=== PATIENT | male | born 1985 | race Hispanic/Latino ===

== ENCOUNTER 2020-03-28 18:48 | Emergency (ER) | payer SELFPAY ==
[~2020-03-28 18:48] MED LIST: ASPI-1005 PO; CLOP75TA14 PO; LISI5TAB PO; METO25 PO; Simvastatin PO
[2020-03-28] MEDS ORDERED: ASPIRIN 325 MG TABLET ONE (19:11)
[2020-03-28 19:33] LABS: BASOPHILS % (AUTO) 0.2 % (0.0-5.0); EOSINOPHILS % (AUTO) 1.4 % (0.0-8.0); HEMATOCRIT 47.3 % (42-54); LYMPHOCYTES % (AUTO) 27.6 % (21.0-51.0); MEAN CORPUSCULAR HEMOGLOBIN 30.4 pg (27.0-33.0); MEAN CORPUSCULAR HGB CONC 35.3 g/dL (32.0-36.0); MEAN CORPUSCULAR VOLUME 86.2 fL (79-99); MONOCYTES % (AUTO) 9.5 % (3.0-13.0); NEUTROPHILS % (AUTO) 61.2 % (40.0-77.0); PLATELET COUNT (AUTO) 218 K/uL (130-400); RED BLOOD CELL COUNT(AUTO) 5.49 MIL/uL (4.50-6.20); RED CELL DISTRIBUTION WIDTH 12.8 % (11.0-15.5); WHITE BLOOD COUNT (AUTO) 8.1 K/uL (4.8-10.8)
[2020-03-28 19:43] LABS: CREATININE 1.2 mg/dL (0.5-1.5)
[2020-03-28 19:46] LABS: INR 1.03 (0.85-1.15); PARTIAL THROMBOPLASTIN TIME 22.3 SEC (26.3-35.5); PROTHROMBIN TIME 11.1 SEC (9.6-11.6)
[2020-03-28 19:47] LABS: AMPHET/METH SCREEN,URINE NEGATIVE (NEGATIVE); BARBITURATE SCREEN, URINE NEGATIVE (NEGATIVE); BENZODIAZEPINES SCREEN,URINE NEGATIVE (NEGATIVE); CANNABINOID SCREEN,URINE NEGATIVE (NEGATIVE); COCAINE SCREEN,URINE NEGATIVE (NEGATIVE); OPIATE SCREEN,URINE NEGATIVE (NEGATIVE); PHENCYCLIDINE SCREEN,URINE NEGATIVE (NEGATIVE)
[2020-03-28 19:48] LABS: ALBUMIN 4.5 g/dL (3.5-5.0); BILIRUBIN,TOTAL 0.7 mg/dL (0.2-1.0); TOTAL PROTEIN, SERUM 7.6 g/dL (6.0-8.3)
[2020-03-28] MEDS ORDERED: POTASSIUM CHLORIDE 20 MEQ ERTAB PO ONE (20:03)
[2020-03-29] MEDS ORDERED: SODIUM CHLORIDE 0.9% 50 ML IV ONE (02:19)
== END 2020-03-28 21:59 | disposition home or self-care (01) ==
LOC: EDH 18:48
DX: R00.2 Palpitations (principal); E87.6 Hypokalemia; I10 Essential (primary) hypertension; I21.9 Acute myocardial infarction, unspecified; Z88.6 Allergy status to analgesic agent
CPT/HCPCS: 36415; 71045; 80053; 80305; 82550; 84484; 85025; 85610; 85730; 93005; 96360; 96361

== ENCOUNTER 2020-04-01 23:52 | Emergency (ER) | payer SELFPAY ==
[2020-04-01] MEDS ORDERED: SODIUM CHLORIDE 0.9% 1000ML 1,000 ML IV ONE (23:53)
[2020-04-02 00:47] LABS: BASOPHILS % (AUTO) 0.2 % (0.0-5.0); EOSINOPHILS % (AUTO) 0.5 % (0.0-8.0); HEMATOCRIT 44.6 % (42-54); LYMPHOCYTES % (AUTO) 18.4 % (21.0-51.0); MEAN CORPUSCULAR HEMOGLOBIN 30.5 pg (27.0-33.0); MEAN CORPUSCULAR HGB CONC 35.7 g/dL (32.0-36.0); MEAN CORPUSCULAR VOLUME 85.6 fL (79-99); MONOCYTES % (AUTO) 7.1 % (3.0-13.0); NEUTROPHILS % (AUTO) 73.7 % (40.0-77.0); PLATELET COUNT (AUTO) 208 K/uL (130-400); RED BLOOD CELL COUNT(AUTO) 5.21 MIL/uL (4.50-6.20); RED CELL DISTRIBUTION WIDTH 12.4 % (11.0-15.5); WHITE BLOOD COUNT (AUTO) 8.2 K/uL (4.8-10.8)
[2020-04-02 00:55] LABS: CREATININE 1.1 mg/dL (0.5-1.5); POTASSIUM 3.8 mmol/L (3.5-5.1)
[2020-04-02 00:59] LABS: ALBUMIN 4.4 g/dL (3.5-5.0); BILIRUBIN,TOTAL 0.4 mg/dL (0.2-1.0); TOTAL PROTEIN, SERUM 7.5 g/dL (6.0-8.3)
[2020-04-02 01:00] LABS: INR 0.99 (0.85-1.15); PARTIAL THROMBOPLASTIN TIME 25.7 SEC (26.3-35.5); PROTHROMBIN TIME 10.7 SEC (9.6-11.6)
[2020-04-02 01:01] LABS: B-TYPE NATRIURETIC PEPTIDE < 5 pg/mL (0-100)
[2020-04-02 02:02] LABS: APPEARANCE,URINE Clear (CLEAR); BILIRUBIN,URINE Negative (NEGATIVE); COLOR,URINE Yellow (YELLOW); GLUCOSE, URINE (UA) Negative (NEGATIVE); KETONES,URINE Negative (NEGATIVE); LEUKOCYTE ESTERASE ,URINE Negative (NEGATIVE); NITRATE,URINE Negative (NEGATIVE); OCCULT BLOOD,URINE Negative (NEGATIVE); PH,URINE 7.5 (5.0-8.0); PROTEIN,URINE Negative (NEGATIVE); UROBILINOGEN,URINE 0.2 mg/dL (0.2-1.0)
== END 2020-04-02 03:27 | disposition home or self-care (01) ==
LOC: EDH 23:52
DX: R06.00 Dyspnea, unspecified (principal); R42 Dizziness and giddiness; I25.10 Atherosclerotic heart disease of native coronary artery without angina pectoris; I25.2 Old myocardial infarction; Z88.6 Allergy status to analgesic agent; Z79.899 Other long term (current) drug therapy; Z98.890 Other specified postprocedural states
CPT/HCPCS: 36415; 71045; 80053; 81003; 82550; 83605; 83880; 84484 ×2; 85025; 85610; 85730; 93005; 96360; 99285; J7030

== ENCOUNTER 2024-08-27 16:31 | Emergency (ER) | payer BC ==
[~2024-08-27] VITALS: Ht 165.1 cm; Wt 68.0 kg
[~2024-08-27 16:31] MED LIST changes: +ALBU90AE3 IH; +CLOP-31 PO; -CLOP75TA14 PO; +LORA10TA60 PO
[2024-08-27 18:13] LABS: RAPID GROUP A STREP negative (NEGATIVE)
[2024-08-27 18:15] LABS: SARS-CoV-2, RNA, NAAT NEGATIVE SARS CoV-2 (NEGATIVE)
[2024-08-27 18:23] LABS: INFLUENZA TYPE A Negative For Type A (NEGATIVE); INFLUENZA TYPE B Negative For Type B (NEGATIVE)
[2024-08-27] MEDS ORDERED: AZIT250T9 PO (19:17)
[2024-08-27] MEDS ORDERED: METH4TAB3 PO (19:17)
--- NOTE | 2024-08-27 19:18 | ERN ---
General Chief Complaint: Flu Symptoms Stated Complaint: FEVER, CHILLS, COUGH Time Seen by MD: 16:32 Time Seen by Midlevel: 16:32 Source: patient History of Present Illness Initial Comments Patient is a 39-year-old male with no significant past medical history presenting to the emergency department with fever chills that started yesterday. He does report recent travel to [facility] for a sports event. He reports being exposed to a lot of people. Denies any other symptoms at this time Allergies: Coded Allergies: acetaminophen (Unverified Allergy, Intermediate, HIVES, 12/22/14) Home Meds Active Scripts Loratadine (Claritin) 10 Mg Tablet, 10 MG PO DAILY, #30 TAB Prov:MARK DAHL MD 11/16/23 Albuterol Sulfate (Proair Digihaler) 90 Mcg Aer.pw.bas, 2 PUFF IH QID, #1 UNIT Prov:MARK DAHL MD 11/16/23 [Simvastatin] 40 MG TABLET No Conflict Check, 40 MG PO HS, #60 TAB 3 Refills Prov:DEBI GASTON MD 12/25/14 Metoprolol Tartrate (Lopressor) 25 Mg Tablet, 25 MG PO BID, #60 TAB 3 Refills Prov:DEBI GASTON MD 12/25/14 Lisinopril (Prinivil) 5 Mg Tablet, 5 MG PO BID, #60 TAB 3 Refills Prov:DEBI GASTON MD 12/25/14 Clopidogrel Bisulfate (Plavix) 75 Mg Tab, 75 MG PO DAILY, #60 TAB 3 Refills Prov:DEBI GASTON MD 12/25/14 Aspirin (ASPIRIN 81MG CHEW TAB) 81 Mg Tab.chew, 81 MG PO DAILY, #60 TAB.CHEW 3 R efills Prov:DEBI GASTON MD 12/25/14 Past Medical History Past Medical History: Hypertension, HI Medical History Other: HI (2014) Past Surgical History: None Family History Family History: Negative Social History Social History: Negative ROS Dictation CONSTITUTIONAL: Negative except for HPI HEAD/FACE: Negative except for HPI EENT: Negative except for HPI RESPIRATORY: Negative except for HPI GASTROINTESTINAL/ABDOMINAL: Negative except for HPI GENITOURINARY: Negative except for HPI MUSCULOSKELETAL: Negative except for HPI INTEGUMENTARY: Negative except for HPI NEUROLOGICAL/PSYCH: Negative except for HPI HEMATOLOGIC/LYMPHATIC: Negative except for HPI All Systems Negative, Except as noted above. 13 point review of systems assessed and all negative except for above. Physical Exam Physical Exam Dictation Vital Signs reviewed General Appearance: Alert, oriented x 3, no acute distress, well developed, nourished. Head and Face: non-traumatic. Eyes: PERRL, pink conjunctivas, eyelid no trauma, anterior chamber with arcus senilis. Ears: Pinnas intact and no signs of trauma or erythema ear canals clear and no discharge TM no erythema Nose: No discharge, no bleeding. Oropharynx: Mouth normal, tongue pink, pharynx clear,no erythema, tonsils no exudates, no abscesses noted, mucous membrane moist Neck: Supple, non-tender, no thyromegaly, no masses, no JVD, no bruits Breast:Deferred Chest:No tenderness, no crepitus, no paradoxical movement, no retractions Lungs:Clear, well-ventilated, symmetric, no rales, no wheezing, no rhonchi, no stridor, good breath sounds bilaterally Heart: Regular rate, regular rhythm, no murmur, no gallops Vascular: no peripheral edema, Abdomen: Soft, positive bowel sounds, nondistended, no guarding, nontender, no rebound, no masses no hepatomegaly, no splenomegaly, no Laguna's sign, no hernias. Rectal: Deferred Genital: Deferred Neurological: Normal speech, motor function intact, sensory function intact Musculoskeletal: Neck nontender, full range of motion, back nontender, full range of motion, Extremities: nontender, full range of motion Skin: Color pink, dry, no turgor, no rash, no lacerations, no abrasions, no contusions. Lymphatic: Deferred Results Laboratory and Microbiology Lab and Micro Result Laboratory Tests Test 08/27/24 17:53 Influenza Type A Antigen Negative For Type A Influenza Type B Antigen Negative For Type B SARS-CoV-2, RNA, NAAT NEGATIVE SARS CoV-2 Group A Streptococcus Rapid negative (NEGATIVE) Labs Reviewed?: Yes MDM MDM: Differential diagnosis: Viral syndrome, upper respiratory infection, strep There are no social concerns with this patient. Prescription drug management Prescriptions will include: Medrol pack, azithromycin Medical management and examination interpretation discussions were had by me with other qualified healthcare professionals as indicated for the patient's care. ED Course Orders Procedure Category Date Status Time Covid Rna Naat LAB 08/27/24 Complete 16:52 Influenza Type A & B, LAB 08/27/24 Complete Rapid 16:52 Rapid (Group A Strep) LAB 08/27/24 Complete 16:52 Vital Signs Date Time Temp Pulse Resp B/P (MAP) Pulse Ox O2 Delivery O2 Flow Rate FiO2 08/27/24 17:51 101.7 89 20 121/81 99 Room Air 0 DX & DISP Disposition: Discharge Departure Impression: Primary Impression: Viral syndrome Condition: Stable Scripts Methylprednisolone (Medrol) 4 Mg Tab.ds.pk 1 TAB PO AD for 6 Days, #21 TAB 0 Refills 6 on day 1 then reduce by one tablet daily until gone Prov: LY CHAVEZ 08/27/24 Azithromycin (Azithromycin) 250 Mg Tablet 1 TAB PO AD for 5 Days, #6 TAB 0 Refills 2 the first day followed by 1 for days 2-5 Prov: LY CHAVEZ 08/27/24 Referrals: TABITHA CHAVEZ MD (PCP) Time of Disposition: 19:13 I have reviewed the case, and I agree with, Diagnosis and Plan I performed the substantive portion of the visit. I have reviewed and personally made and approve the management plan that is documented in the note by myself or the MERVAT. I acknowledge for responsibility for the patient's management plan. LY CHAVEZ Aug 27, 2024 19:17
[2024-08-27 19:51] VITALS: BP 142/68; PULSE 89; RESP 18; TEMP 98.2; O2SAT 100
== END 2024-08-27 19:47 | disposition home or self-care (01) ==
LOC: EDH 16:31
DX: B34.9 Viral infection, unspecified (principal); I10 Essential (primary) hypertension; Z20.822 Contact with and (suspected) exposure to COVID-19; Z79.02 Long term (current) use of antithrombotics/antiplatelets; Z79.82 Long term (current) use of aspirin; Z79.899 Other long term (current) drug therapy
CPT/HCPCS: 87635; 87804; 87880; 99283

== ENCOUNTER → 2024-09-06 | Outpatient (CLI) | payer BC ==
[~2024-09-06] MED LIST changes: +AZIT250T9 PO; +METH4TAB3 PO
[2024-09-06 12:29] LABS: ALBUMIN 3.2 g/dL (3.5-5.0); BILIRUBIN,DIRECT 0.1 mg/dL (0.0-0.3); BILIRUBIN,TOTAL 0.4 mg/dL (0.2-1.0); TOTAL PROTEIN, SERUM 7.7 g/dL (6.0-8.3)
== END | disposition home or self-care (01) ==
LOC: LAB 10:19
PROVIDERS: ATTEND Internal Medicine Cardiovascular Disease
DX: E78.5 Hyperlipidemia, unspecified (principal)
CPT/HCPCS: 36415; 80061; 80076

== ENCOUNTER 2025-02-10 20:44 | Emergency (ER) | payer BC ==
[~2025-02-10] VITALS: Ht 162.6 cm; Wt 68.9 kg
[~2025-02-10 20:44] MED LIST changes: -ALBU90AE3 IH; -AZIT250T9 PO; -CLOP-31 PO; +CLOP75TA32 PO; +EZET10TA48 PO; -LISI5TAB PO; -LORA10TA60 PO; +LOSA100T59 PO; -METH4TAB3 PO; +METO-408 PO; -METO25 PO; +ROSU40TA88 PO; -Simvastatin PO
[2025-02-10 21:30] LABS: IMMATURE GRANULOCYTE ABSOLUTE 0.01 K/uL (0-1); NUCLEATED RED BLOOD CELLS 0.0 % (0.0-0.19); PLATELET COUNT (AUTO) 209 K/uL (130-400); RED BLOOD CELL COUNT(AUTO) 5.31 MIL/uL (4.50-6.20); RED CELL DISTRIBUTION WIDTH 12.4 % (11.0-15.5); WHITE BLOOD COUNT (AUTO) 6.3 K/uL (4.8-10.8)
--- NOTE | 2025-02-10 21:39 | NUR ---
GIVEN URINE CUP
[2025-02-10 21:41] LABS: CREATININE 1.0 mg/dL (0.5-1.3); GLOMERULAR FILTR. RATE CALC 99.0 mL/min (>90); GLUCOSE,RANDOM 115.0 mg/dL (70-105); SODIUM SERUM 141.0 mmol/L (136-145); UREA NITROGEN, BLOOD 13.0 mg/dL (7-18)
[2025-02-10 21:51] LABS: CREATINE KINASE, TOTAL 89.0 U/L (21-232)
--- NOTE | 2025-02-10 22:15 | HMCIMG ---
EXAM: CR Chest, 1 View. CLINICAL HISTORY: sob COMPARISON: None provided. FINDINGS: LUNGS: The lungs show no infiltrate or other acute finding. PLEURAL SPACES: No evidence of pleural effusion or pneumothorax. MEDIASTINUM: Cardiac size and mediastinal contours within normal limits. BONES: No aggressive appearing osseous lesion seen. IMPRESSION: No acute cardiopulmonary pathology is evident. /[place]
[2025-02-10 22:22] LABS: ADD UA MICROSCOPIC NO; APPEARANCE,URINE CLEAR (CLEAR); GLUCOSE, URINE (UA) NEGATIVE (NEGATIVE); LEUKOCYTE ESTERASE ,URINE NEGATIVE Leu/uL (NEGATIVE); NITRATE,URINE NEGATIVE (NEGATIVE); OCCULT BLOOD,URINE NEGATIVE (NEGATIVE)
--- NOTE | 2025-02-10 22:36 | ERN ---
ED Note History of Present Illness Stated Complaint: C/O HIGH B/P Chief Complaint: Hypertension Time Seen by MD: 20:52 Time Seen by Midlevel: 20:52 Dictation: The patient is a 39-year-old male with a history of CAD who presents to the emergency department with complaints of elevated blood pressure, nausea and low appetite onset yesterday. Patient reports that his blood pressure was 155/95 at home. Patient denies any chest pain, abdominal pain, shortness of breath, fevers. Patient was seen here a month ago and was diagnosed with myocarditis. Reports he has been follow up with Dr. 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 Patient reports compliant with medications. Allergies: Coded Allergies: acetaminophen (Unverified Allergy, Intermediate, HIVES, 12/22/14) Home Meds Active Scripts Clopidogrel Bisulfate (Clopidogrel) 75 Mg Tablet, 75 MG PO DAILY, #30 TAB 1 Refill Prov:ALBERTO SPEAR MD 01/10/25 Reported Medications Rosuvastatin Calcium (Rosuvastatin Calcium) 40 Mg Tablet, 1 TAB PO HS for high cholesterol for 30 Days, #30 TAB 0 Refills 01/09/25 Ezetimibe (Ezetimibe) 10 Mg Tablet, 1 TAB PO HS for 30 Days, #30 TAB 0 Refills 01/09/25 Aspirin (ASPIRIN 81MG CHEW TAB) 81 Mg Tab.chew, 1 TAB PO HS for 30 Days, #30 TAB 0 Refills 01/09/25 Losartan Potassium (Losartan Potassium) 100 Mg Tablet, 1 TAB PO HS for 30 Days, #30 TAB 0 Refills 01/09/25 Metoprolol Succinate (Metoprolol Succinate) 25 Mg Tab.er.24h, 1 TAB PO HS for 30 Days, #30 TAB 0 Refills 01/09/25 Past Medical History Past Medical History: Hypertension Additional Past Medical Hx: HX OF [place] (01/09/2025) Surgical History: None Family History: Negative Social History: Negative RN Note Reviewed/Agreed w/PFSH: Yes Review of System Dictation Constitutional: Negative for fever,chills, and weight loss Eyes: Negative for injury, pain,redness, and discharge ENT: Negative for injury,pain or swelling Cardiovascular: Negative for chest pain, palpitations, and edema positive for high blood pressure Respiratory: Negative for shortness of breath, cough, and wheezing, Abdomen/GI: Negative for abdominal pain, vomiting, diarrhea, and constipation positive for nausea Back: Negative for injury and pain : Negative for injury, bleeding and discharge MS/Extremity: Negative for injury and deformity Skin: Negative for rash, and discoloration Neuro: Negative for headache, weakness, numbness, tingling, and seizure Psych: Negative for suicide ideation, homicidal ideation, and hallucinations Initial Vital Sign VS Vital Signs Date Time Temp Pulse Resp B/P (MAP) Pulse Ox O2 Delivery O2 Flow Rate FiO2 02/10/25 20:46 99.0 74 20 163/91 98 Room Air 02/10/25 21:35 0 21 Physical Exam Dictation Vital Signs reviewed General Appearance: Alert, oriented x 3, no acute distress, well developed, nourished. Head and Face: non-traumatic. Eyes: PERRL, pink conjunctivas, eyelid no trauma, anterior chamber with arcus senilis. Ears: Pinnas intact and no signs of trauma or erythema ear canals clear and no discharge TM no erythema Nose: No discharge, no bleeding. Oropharynx: Mouth normal, tongue pink. pharynx clear,no erythema, tonsils no exudates, no abscesses noted, mucous membrane moist Neck: Supple, non-tender, no thyromegaly, no masses, no JVD, no bruits Breast:Deferred Chest:No tenderness, no crepitus, no paradoxical movement, no retractions Lungs:Clear, well-ventilated, symmetric, no rales, no wheezing, no rhonchi, no stridor, good breath sounds bilaterally Heart: Regular rate, regular rhythm, no murmur, no gallops Vascular: no peripheral edema, Abdomen: Soft, positive bowel sounds, nondistended, no guarding, nontender, no rebound, no masses no hepatomegaly, no splenomegaly, no Laguna's sign, no hernias. Rectal: Deferred Genital: Deferred Neurological: Normal speech, motor function intact, sensory function intact Musculoskeletal: Neck nontender, full range of motion, back nontender, full range of motion, Extremities: nontender, full range of motion Skin: Color pink, dry, no turgor, no rash, no lacerations, no abrasions, no contusions. Lymphatic: Deferred Results (Laboratory/Radiology) Laboratory/Radiology Laboratory Tests Test 02/10/25 21:17 02/10/25 21:52 White Blood Count 6.3 K/uL (4.8-10.8) Red Blood Count 5.31 MIL/uL (4.50-6.20) Hemoglobin 15.9 g/dL (14.0-18.0) Hematocrit 45.3 % (42-54) Mean Corpuscular Volume 85.3 fL (79-99) Mean Corpuscular Hemoglobin 29.9 pg (27.0-33.0) Mean Corpuscular Hemoglobin Concent 35.1 g/dL (32.0-36.0) Red Cell Distribution Width 12.4 % (11.0-15.5) Platelet Count 209 K/uL (130-400) Mean Platelet Volume 9.9 fL (7.5-10.5) Immature Granulocyte % (Auto) 0.2 % (0-1) Neutrophils (%) (Auto) 72.6 % (40.0-77.0) Lymphocytes (%) (Auto) 19.2 % (21.0-51.0) L Monocytes (%) (Auto) 7.5 % (3.0-13.0) Eosinophils (%) (Auto) 0.3 % (0.0-8.0) Basophils (%) (Auto) 0.2 % (0.0-5.0) Neutrophils # (Auto) 4.6 K/uL (1.8-7.7) Lymphocytes # (Auto) 1.2 K/uL (1.0-4.8) Monocytes # (Auto) 0.5 K/uL (0.1-1.0) Eosinophils # (Auto) 0.02 K/uL (0.00-0.70) Basophils # (Auto) 0.01 K/uL (0.00-0.20) Absolute Immature Granulocyte (auto 0.01 K/uL (0-1) Nucleated Red Blood Cells 0.0 % (0.0-0.19) Sodium Level 141 mmol/L (136-145) Potassium Level 3.5 mmol/L (3.5-5.1) Chloride Level 101 mmol/L (101-111) Carbon Dioxide Level 27 mmol/L (21-32) Blood Urea Nitrogen 13 mg/dL (7-18) Creatinine 1.0 mg/dL (0.5-1.3) Glomerular Filtration Rate Calc 99 mL/min (>90) Random Glucose 115 mg/dL (70-105) H Total Calcium 9.4 mg/dL (8.5-10.1) Magnesium Level 1.70 mg/dL (1.80-2.40) L Total Creatine Kinase 89 U/L (21-232) # Troponin I High Sensitivity 19 ng/L (4-75) Urine Color LIGHT-YELLOW (YELLOW) Urine Appearance CLEAR (CLEAR) Urine pH 6.0 (5.0-8.0) Urine Specific [place] 1.012 (1.001-1.031) Urine Protein NEGATIVE mg/dL (NEGATIVE) Urine Glucose (UA) NEGATIVE mg/dL (NEGATIVE) Urine Ketones NEGATIVE mg/dL (NEGATIVE) Urine Occult Blood NEGATIVE (NEGATIVE) Urine Nitrate NEGATIVE (NEGATIVE) Urine Bilirubin NEGATIVE mg/dL (NEGATIVE) Urine Urobilinogen 0.2 mg/dL (0.2-1.0) Urine Leukocyte Esterase NEGATIVE Idalmis/uL REASON: sob ORDERING PHYSICIAN: KASEY MULLER BRICK POINTER PROCEDURE: CXR1VW - CHEST 1VW EXAM: CR Chest, 1 View. CLINICAL HISTORY: sob COMPARISON: None provided. FINDINGS: LUNGS: The lungs show no infiltrate or other acute finding. PLEURAL SPACES: No evidence of pleural effusion or pneumothorax. MEDIASTINUM: Cardiac size and mediastinal contours within normal limits. BONES: No aggressive appearing osseous lesion seen. IMPRESSION: No acute cardiopulmonary pathology is evident. /[place] Labs Reviewed?: Yes EKG: (+) rhythm (Sinus rhythm) EKG Comment: Date:02/10/2025 Time:2104 Ventricular rate:75 [place] interval:111 QRS duration:93 QT/QTc:363/405 EKG interpretation: Sinus rhythm Reviewed by ED Attending no STEMI ED Course ED Course Orders Procedure Category Date Status Time Cbc With Differential LAB 02/10/25 Complete 21:02 Chest 1vw RAD 02/10/25 Resulted 21:02 12 Lead Ekg Tracing- EKG 02/10/25 Logged Technical 21:02 Ondansetron 4mg Inj PHA 02/10/25 Complete (Zofran 4mg Inj) 21:30 Magnesium LAB 02/10/25 Complete 21:02 Creatine Kinase, Total LAB 02/10/25 Complete 21:02 Troponin I High LAB 02/10/25 Complete Sensitivity 21:02 Urinalysis Profile LAB 02/10/25 Complete 21:02 Basic Metabolic Panel LAB 02/10/25 Complete 21:02 Current Medications Medications (Trade) Dose Ordered Sig/David Route PRN Reason Start Time Stop Time Status Last Admin Dose Admin Ondansetron HCl (zoFRAN 4MG INJ) 4 mg ONCE ONCE IVP 02/10/25 21:30 02/10/25 21:31 DC 02/10/25 21:30 Vital Signs Date Time Temp Pulse Resp B/P (MAP) Pulse Ox O2 Delivery O2 Flow Rate FiO2 02/10/25 21:35 71 18 142/71 97 Room Air* 0 21 02/10/25 20:46 99.0 74 20 163/91 98 Room Air Medical Decision Making MDM The patient is a 39-year-old male with a history of CAD who presents to the emergency department with complaints of elevated blood pressure, nausea and low appetite onset yesterday. Patient reports that his blood pressure was 155/95 at home. Patient denies any chest pain, abdominal pain, shortness of breath, fevers. Patient was seen here a month ago and was diagnosed with myocarditis. Reports he has been follow up with Dr. 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 Patient reports compliant with medications. CBC showed no leukocytosis, no anemia, chemistry showed mild hypomagnesemia, negative CK, negative troponin, urinalysis unremarkable. Chest x-ray showed no acute pathology. Patient's blood pressure improved on its own. On physical exam patient is in no acute distress, neurologically intact, soft nontender abdomen to palpation. Patient instructed to follow up with his crew foreman and his PCP. Patient is agree with discharge planning Differential diagnosis: Electrolyte imbalance, dehydration, ACS, hypertensive urgency Need for hospitalization: Patient does not meet criteria for hospitalization. There are no social concerns with this patient. DX & DISP Disposition: Discharge Departure Impression: Primary Impression: Elevated blood pressure reading Additional Impressions: Hypomagnesemia, Nausea Condition: Stable Additional Instructions: Your labs were unremarkable except your magnesium was slightly decrease, your xray was normal. Please follow up with your PCP and your crew foreman. If anything worsens please return to ER. FOLLOW-UP WITH PRIMARY CARE PROVIDER IN 1 TO 2 DAYS. TAKE MEDICATIONS DIRECTED HERE IN THE EMERGENCY ROOM. OKAY TO CONTINUE HOME MEDICATIONS UNLESS OTHERWISE DISCUSSED DURING YOUR VISIT IN THE EMERGENCY ROOM TODAY. RETURN TO YOUR NEAREST EMERGENCY ROOM IF SYMPTOMS WORSEN OR IF THERE IS NO IMPROVEMENT. CALL 911 IF YOU NEED IMMEDIATE ASSISTANCE. TAKE TYLENOL [id number] NEEDED AND IF NO CONTRAINDICATIONS ARE PRESENT. INCREASE ORAL HYDRATION. A WOUND CULTURE OR URINE CULTURE WAS ORDERED HERE IN THE EMERGENCY ROOM DEPARTMENT PLEASE FOLLOW-UP WITH PRIMARY CARE PROVIDER AND ADVISE THEM TO GET REPEAT PORTS FROM OUR FACILITY. IF YOU HAD ANY SHERRY WRAP/SPLINTS THAT WERE APPLIED HERE, PLEASE DO NOT REMOVE THEM UNTIL YOU SEE YOUR PRIMARY CARE OR SPECIALTY. Referrals: TABITHA CHAVEZ MD (PCP) Time of Disposition: 22:34 I have reviewed the case, and I agree with, Diagnosis and Plan KASEY MULLER [facility] Feb 10, 2025 22:36
[2025-02-10 22:45] VITALS: BP 121/72; PULSE 69; RESP 18; TEMP 98.8; O2SAT 100
[2025-02-10] MEDS: MAGNESIUM OXIDE 400 MG TABLET PO ONE (22:47)
--- NOTE | 2025-02-11 06:28 | EKG ---
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
== END 2025-02-10 22:53 | disposition home or self-care (01) ==
LOC: EDH 20:44
DX: I10 Essential (primary) hypertension (principal); E83.42 Hypomagnesemia; R11.0 Nausea; Z79.02 Long term (current) use of antithrombotics/antiplatelets; Z79.82 Long term (current) use of aspirin; Z79.899 Other long term (current) drug therapy
CPT/HCPCS: 99284; 96374; 71045; 82550; 83735; 84484; 80048; 85025; 81003; 36415; 93005; J2405